=== PATIENT | male | born 1970 | race Caucasian/White ===

== ENCOUNTER 2018-04-28 14:54 | Emergency (ER) | payer OTHER ==
[~2018-04-28] VITALS: Ht 188 cm; Wt 149.1 kg
[2018-04-28 15:07] VITALS: BP 155/73
[2018-04-28] MEDS ORDERED: KETOROLAC 30 MG/1 ML IM ONE (15:30)
[2018-04-28] MEDS ORDERED: DIAZEPAM 5 MG TABLET PO ONE (15:30)
[2018-04-28] MEDS ORDERED: DIAZEPAM 5 MG TABLET ONE (15:36)
[2018-04-28] MEDS ORDERED: KETOROLAC 30 MG/1 ML ONE (15:36)
== END 2018-04-28 16:46 | disposition home or self-care (01) ==
LOC: ED 16:35
DX: S39.012A Strain of muscle, fascia and tendon of lower back, initial encounter (principal); M51.36 Other intervertebral disc degeneration, lumbar region; X58.XXXA Exposure to other specified factors, initial encounter; Y93.89 Activity, other specified; Y92.89 Other specified places as the place of occurrence of the external cause; Y99.8 Other external cause status
CPT/HCPCS: 72110; 96372; 99283; J1885; J7512